=== PATIENT | female | born 2000 | race Caucasian/White ===

== ENCOUNTER 2020-12-10 00:15 | Inpatient (IN) ==
[2020-12-10] MEDS ORDERED: IOPAMIDOL 100 ML BOTTLE IV ONE ×2 (00:16→15:29)
[2020-12-10] MEDS ORDERED: LACTATED RINGERS 1,000 ML IV ONE ×2 (00:57→00:59)
[2020-12-10] MEDS ORDERED: morphine 4 MG/ML VIAL IV ONE (00:57)
[2020-12-10] MEDS ORDERED: VANCOMYCIN 1,000 MG in 0.9 % SODIUM CHLORIDE 250 ML IV ONE (00:59)
[2020-12-10 01:39] LABS: POC Blood Urea Nitrogen 6 mg/dL (6-20); POC CO2 27 mmol/L (22-30); POC Chloride 94 mEq/L (96-108); POC Creatinine 0.7 mg/dL (0.6-1.2); POC Glucose, Random 113 mg/dL (70-105); POC Hematocrit 43 % (36-48); POC Potassium 3.7 mEql/L (3.3-5.1); POC Sodium 133 mEq/L (133-145)
[2020-12-10] MEDS ORDERED: diphenhydrAMINE 50 MG/ML VIAL IV ONE ×2 (02:30→08:41)
[2020-12-10] MEDS ORDERED: KETOROLAC 30 MG/ML VIAL IV ONE ×2 (02:30→08:42)
[2020-12-10 02:34] LABS: Basophils # (Auto) 0.03 K/mcL (0.00-0.30); Basophils % (Auto) 0.2 % (0.0-2.0); Eosinophils # (Auto) 0.19 K/mcL (0.00-0.70); Eosinophils % (Auto) 1.4 % (0.0-7.0); Hematocrit 42.1 % (34.1-44.9); Hemoglobin 13.2 g/dL (11.2-15.7); Lymphocytes # (Auto) 2.35 K/mcL (1.50-4.80); Lymphocytes % (Auto) 17.7 % (15.5-49.0); Mean Cell Volume 89.8 fL (80.0-100.0); Mean Corpuscular HGB Conc 31.4 g/dL (31.0-36.0); Mean Platelet Volume 10.2 fL (7.4-10.4); Monocytes # (Auto) 1.12 K/mcL (0.10-0.90); Monocytes % (Auto) 8.5 % (1.0-12.0); Neutrophils % (Auto) 72.2 % (38.0-78.0); Platelet Count 352 K/mcL (140-440); RBC 4.69 M/mcL (3.59-5.38); Red Cell Distribution Width 13.8 % (11.5-14.5); WBC 13.3 K/mcL (4.5-11.0)
--- NOTE | 2020-12-10 05:21 | Emergency Department Note ---
Skin/Abscess/FB HPI General Chief complaint: Skin/Abscess/Rash Stated complaint: Abscess Time Seen by Provider: 12/10/20 00:57 Source: patient Mode of arrival: ambulatory Limitations: no limitations History of Present Illness HPI Narrative: Narrative: 20-year-old female with a history of lupus not on any medications and Raynaud's syndrome, history of IVDA use (opiates), presenting to the ED with worsening right leg popliteal pain swelling and redness worsening progressively for the past 10 days. She does admit she did inject in the popliteal region about 10 days ago when this all slowly started. She endorses a lot of pain especially with range of motion of the knee. But denies systemic symptoms such as fevers. She has no chest pain shortness of breath and no other complaints in her other extremities. She is recently new to the [facility] and has not really followed up on her overall general health care, coming here from [place] because her father lives in this general area. Related Data Home Medications Medication Instructions Recorded Confirmed No Known Home Meds 12/10/20 12/10/20 Allergies Allergy/AdvReac Type Severity Reaction Status Date / Time aripiprazole [From Abilify] Allergy Severe Other Verified 12/10/20 00:19 Review of Systems ROS ROS Narrative: Narrative: At least 10 systems reviewed and otherwise acutely negative except as in the [facility] Narrative Patient History Narrative: Narrative: Medical/Surgical/Family History All Active Problems Cellulitis (Acute) Abscess of right lower leg (Acute) Social History Smoking Status: Current every day smoker Exam Narrative Narrative: Narrative: Constitutional: normally developed, appears in some pain, overall ill-appearing Head: Normocephalic, atraumatic, Eyes: No Icterus, ENT: Moist mucus membranes, Neck: Supple, Cardiac: Tachycardic heart sounds, palpable radial pulses, palpable dorsalis pedis and PT pulses brisk capillary refill in lower extremities Pulmonary: Normal respiratory effort. Breath sounds clear, no wheeze, rhonchi, rales, Gastrointestinal: Abdomen soft, non-distended, non-tender, Musculoskeletal: No gross deformities, well perfused. Some chronic scarring to her antecubital fossa's. Exam of her right lower extremity shows extensive warmth induration tenderness and swelling and cellulitis focused primarily over her right popliteal region extending up her proximal posterior thigh and calf region. No necrosis or Crepitus, compartments feel soft. She has difficulty fully extending at the knee secondary to pain. She is distally neurovascularly intact Skin: warm, dry Neuro: Alert and oriented. General Limitations: no limitations Course Vital Signs Vital signs: Vital Signs Temperature 36.6 C 12/10/20 00:16 Pulse Rate 120 H 12/10/20 00:16 Respiratory Rate 16 12/10/20 00:16 Blood Pressure 118/91 12/10/20 00:16 Pulse Oximetry (%) 100 12/10/20 00:16 Temperature 36.6 C 12/10/20 00:16 Pulse Rate 110 H 12/10/20 02:34 Respiratory Rate 98 H 12/10/20 03:16 Blood Pressure 102/65 12/10/20 06:46 Pulse Oximetry (%) 99 12/10/20 04:16 MDM MDM Narrative Medical decision making narrative: Narrative: Patient presents with what clinically is consistent with an extensive cellulitis to the back of her right knee and suspected deep tissue abscess. She is tachycardic but afebrile and blood pressure stable. Septic work-up initiated is given 2 L IV fluids, vancomycin blood cultures obtained will obtain CT of her leg CBC shows leukocytosis 13, lactic acid normal electrolytes unremarkable, p [id number] negative. CT shows enhanced fluid collection over the proximal gastrocnemius 3.4 x 8 x 5.9 cm with inflammation of the deep and some superficial soft tissue and stranding. Does also extend down to the region of the popliteal vein and artery, popliteal vein appears to narrow in the region of the infection but does fill below and above, cannot rule out DVT. Reevaluation vital stable feeling better, tachycardia resolved, will require admission for an extensive soft tissue infection with further IV antibiotics and surgical evaluation for possible washout or debridement. patient is very agreeable and appreciative of that plan. I have spoken with Dr. Brooks accepts admission, I have also consulted with Dr. Johnson with orthopedics for washout, however his schedule is quite busy in the OR today, I have subsequently spoken with Dr. Colunga with general surgery who is agreeable to taking the patient for washout likely around noon today. Patient will remain in the ED until a bed is available, she started on some maintenance fluids made n.p.o. Additionally have ordered a duplex ultrasound the right lower extremity to further differentiate if there is any DVT. Lab Data Result diagrams: 12/10/20 01:25 Labs: Lab Results 12/10/20 12/10/20 12/10/20 Range/Units 01:23 01:24 01:25 WBC 13.3 H (4.5-11.0) K/mcL RBC 4.69 (3.59-5.38) M/mcL Hgb 13.2 (11.2-15.7) g/dL Hct 42.1 (34.1-44.9) % POC Hct 43 (36-48) % MCV 89.8 (80.0-100.0) fL MCH 28.1 (26.0-34.0) pg MCHC 31.4 (31.0-36.0) g/dL RDW 13.8 (11.5-14.5) % Plt Count 352 (140-440) K/mcL MPV 10.2 (7.4-10.4) fL Neut % (Auto) 72.2 (38.0-78.0) % Lymph % (Auto) 17.7 (15.5-49.0) % [place] % (Auto) 8.5 (1.0-12.0) % Eos % (Auto) 1.4 (0.0-7.0) % Baso % (Auto) 0.2 (0.0-2.0) % Lymph # (Auto) 2.35 (1.50-4.80) K/mcL [place] # (Auto) 1.12 H (0.10-0.90) K/mcL Eos # (Auto) 0.19 (0.00-0.70) K/mcL Baso # (Auto) 0.03 (0.00-0.30) K/mcL Absolute Neutrophils 9.56 H (1.80-8.00) K/mcL VBG Lactic Acid 1.0 (0.5-2.0) mmol/L POC Sodium 133 (133-145) mEq/L POC Potassium 3.7 (3.3-5.1) mEql/L POC Chloride 94 L (96-108) mEq/L POC Total CO2 27 (22-30) mmol/L POC BUN 6 (6-20) mg/dL POC Creatinine 0.7 (0.6-1.2) mg/dL POC Glucose 113 H (70-105) mg/dL POC WB Ioniz Calcium 1.10 L (1.16-1.32) mmEq/L ED POC Tests ED POC Tests: HCG POC Results Negative Discharge Plan Patient/Caregiver Discharge Instructions Pt seen by [facility]/PA only: No Clinical Impression: Abscess of right lower leg Cellulitis Qualifiers: Site of cellulitis: extremity Site of cellulitis of extremity: lower extremity Laterality: right Qualified Code(s): L03.115 - Cellulitis of right lower limb Patient Disposition: Xfer As Inpt ([facility] Condition: Fair Prescriptions: No Action No Known Home Meds RF: 0
[2020-12-10] MEDS ORDERED: ONDANSETRON 4 MG/2 ML VIAL IV PRN ×3 (07:04→15:29)
[2020-12-10] MEDS ORDERED: HYDROmorphone 0.5 MG/0.5 ML SYRINGE IV PRN ×2 (07:04→13:38)
[2020-12-10] MEDS ORDERED: VANCOMYCIN PER PHARMACY IV ONE (07:04)
[2020-12-10] MEDS ORDERED: VANCOMYCIN PER PHARMACY IV SCH ×2 (07:15→15:29)
[2020-12-10] MEDS ORDERED: LACTATED RINGERS 1,000 ML IV SCH ×3 (07:15→15:29)
[2020-12-10] MEDS: CEFEPIME 2 GM VIAL IV SCH ×4 (08:16→22:31)
--- NOTE | 2020-12-10 08:37 | Cat Scan Report ---
History: Infection in the right popliteal fossa there is edema extending down the calf and in the upper thigh TECHNIQUE: Following injection of intravenous nonionic contrast the patient was imaged from the mid thigh to the mid tibia and fibula. Sagittal and coronal reformats were created. The radiation exposure was limited using dose reduction technology. FINDINGS: There is a complex irregularly shaped fluid collection with peripheral enhancement in the popliteal fossa extending into the upper thigh. It measures 3.4 x 5.9 x 8.0 cm. It is contiguous with the posterior aspect of the bellies of the medial and lateral gastrocnemius muscles. There is edema in the deep fascial planes and in the subcutaneous tissues extending posteriorly in the upper thigh and distally to the mid calf. There are small amount of fluid in the suprapatellar bursa. There is low level enhancement of the synovium in the suprapatellar bursa. Below the level of the knee joint, the abscess collection is causing extrinsic compression of the popliteal vein. Popliteal artery is normal. There are couple lymph nodes in the popliteal fossa measuring up to 1 cm. IMPRESSION: Large abscess in the midline of the mid to lower popliteal fossa with surrounding cellulitis. Possible septic joint with small amount of fluid with low level enhancement of the synovium in the suprapatellar bursa Interpreted and Authenticated by: Vance Zelaya 12/10/20
[2020-12-10] MEDS ORDERED: ACETAMINOPHEN 1,000 MG/100 ML BAG IV ONE (08:42)
--- NOTE | 2020-12-10 08:52 | Ultrasound Report ---
History: Abscess in the right popliteal fossa with compression of the popliteal vein seen on preceding CT scan FINDINGS: There is normal venous flow in the thigh from the groin down to the top of the distal thigh. There is no thrombosis in the thigh. In the popliteal fossa there is a complex abscess collection which measures 3.9 x 6.2 x 6.6 cm. Patient would not tolerate compression of the popliteal fossa due to the infection. There may be a small amount of nonocclusive clot along the superior aspect of the popliteal fossa. There is extrinsic compression of the popliteal vein but the vein does not appear thrombosed. Was demonstrated in the posterior tibial and peroneal veins. IMPRESSION: Extrinsic compression of the popliteal vein by large abscess. Possible small organized thrombus near the boundary of the distal superficial femoral vein and popliteal vein Abscess in the popliteal fossa Interpreted and Authenticated by: Vance Zelaya 12/10/20
[2020-12-10] MEDS ORDERED: VANCOMYCIN 750 MG in 0.9 % SODIUM CHLORIDE 250 ML IV SCH (09:00)
--- NOTE | 2020-12-10 12:06 | General Surg History&Physical ---
HPI History of Present Illness Patient information: Note initiated : 12/10/20 at 11:56 am Service Date, if different from initiated Date: [] Patient: Anitha Horton a 20 y/o F admitted on for Abscess. Chief Complaint: [] Chief complaint: Abscess right popliteal fossa History of present illness: Ms. Horton is a 20 year old F admitted with large abscess right popliteal fossa. The patient has a history of substance abuse and uses heroin and methamphetamine. She had methamphetamine and heroin injection about 1 week ago. She developed pain and redness in the posterior aspect of the right leg injection site. She has had progressive pain since that time. She noted increasing swelling and difficulty flexing and extending her right knee. She was seen in the emergency room and is noted to have a bulging abscess of the superior aspect of the gastrocnemius and the popliteal space. She also has cellulitis of the posterior Thigh and calf. Patient states that her last injection was 4 days ago. She has a major abscess and will need operative drainage and debridement under anesthesia. Constitutional Constitutional: Present chills, fatigue, lethargy, malaise and weakness EENT Ears: Absent decreased hearing Nose, mouth and throat: Absent abnormal hearing, dry mouth and vertigo Cardiovascular Cardiovascular: Present leg edema and pedal edema; Absent chest pain with activity, claudication, dyspnea on exertion, radiating jaw, neck or arm pain and palpatations Respiratory Respiratory: Absent cough, dyspnea and wheezing Gastrointestinal Gastrointestinal: Absent abdominal pain, cramping and melena Musculoskeletal Musculoskeletal: Present abnormal gait, arthralgias, joint swelling, muscle cramps and muscle weakness Integumentary Integumentary: Present sores; Absent pruritus Neurological Neurological: Absent abnormal gait and behavioral changes Psychiatric Psychiatric: Present depression Hematologic/Lymphatic Hematologic/Lymphatic: Absent easy bleeding, easy bruising and lymphadenopathy Allergic/Immunologic Allergic/Immunologic: Absent tongue swelling, throat swelling, uticaria, wheezing and lip swelling PFSH PFSH All Active Problems (Updated 12/10/20 @ 12:09 by Aracelis Colunga MD) Polysubstance (including opioids) dependence with physiol dependence (Acute) Cellulitis (Acute) Abscess of right lower leg (Acute) MEDS/ALLERGIES Home Medications and Allergies Home Medications Medication Instructions Recorded Confirmed Type No Known Home Meds 12/10/20 12/10/20 History Allergies Allergy/AdvReac Type Severity Reaction Status Date / Time aripiprazole [From [facility]] Allergy Severe Other Verified 12/10/20 00:19 Physical Examination Vital Signs Vital signs: Temp Pulse Resp BP Pulse Ox 97.8 F 86 98 H 98/55 97 12/10/20 00:16 12/10/20 11:47 12/10/20 03:16 12/10/20 10:39 12/10/20 11:47 General physical appearance General physical exam: well developed, well nourished, moderate distress and moderate pain Eyes Eye exam: PERRL and normal ocular movement ENT ENT exam: normal nares, normal mucosa, no hearing loss, no congestion, poor assisted and other (Cavitated teeth); negative decreased hearing Head Head exam IM: Present atraumatic and normal inspection Neck Neck exam: no masses, no bruits, trachea midline, no lymphadenopathy and no venous distension Cardiovascular Cardiovascular exam IM: Present normal rate and rhythm, RRR, +S1 and +S2; Absent gallop and JVD Respiratory Respiratory exam: normal expansion, normal respiratory effort and clear to auscultation Abdomen Abdomen: Present soft and non tender; Absent bowel sounds (Normal bowel sounds) Hernia: Absent none Integumentary Integumentary: Present other (Cellulitis posterior aspect right leg extending from popliteal space down to Achilles) Neurologic Neurologic: Present normal coordination and normal sensation Musculoskeletal Musculoskeletal: Present other (Large tender fluctuant abscess cavity superior aspect of the gastrocnemius insertion with extension into popliteal space) Psychiatric Psychiatric: Present oriented to time, oriented to person, oriented to place, speech is normal and memory intact Results Labs Result diagrams: 12/10/20 01:25 Labs: Abnormal lab results 12/10/20 12/10/20 Range/Units 01:23 01:25 WBC 13.3 H (4.5-11.0) K/mcL Bland # (Auto) 1.12 H (0.10-0.90) K/mcL Absolute Neutrophils 9.56 H (1.80-8.00) K/mcL POC Chloride 94 L (96-108) mEq/L POC Glucose 113 H (70-105) mg/dL POC WB Ioniz Calcium 1.10 L (1.16-1.32) mmEq/L All other labs normal. A/P Assessment and plan (1) Abscess of right lower leg: Status: Acute (2) Cellulitis: Status: Acute Qualifiers: Laterality: right Site of cellulitis: extremity Site of cellulitis of extremity: lower extremity Qualified Code(s): L03.115 - Cellulitis of right lower limb (3) Polysubstance (including opioids) dependence with physiol dependence: Status: Acute Time Spent With Patient Time: Total time spent is greater than 50% in coordination of care (as documented) at patient's floor/unit and/or counseling patient:
[2020-12-10] MEDS ORDERED: MIDAZOLAM 2 MG/2 ML VIAL ONE (13:00)
[2020-12-10] MEDS ORDERED: ONDANSETRON 4 MG/2 ML VIAL ONE (13:00)
[2020-12-10] MEDS ORDERED: PROPOFOL 200 MG/20 ML VIAL IV ONE (13:00)
[2020-12-10] MEDS ORDERED: KETAMINE 50 MG/ML Syringe (ANEST) IV ONE (13:00)
[2020-12-10] MEDS ORDERED: GLYCOPYRROLATE 0.2 MG/ML VIAL IV ONE (13:00)
[2020-12-10] MEDS ORDERED: DEXAMETHASONE 10 MG/ML VIAL ONE (13:00)
[2020-12-10] MEDS ORDERED: fentaNYL 100 MCG/2 ML VIAL IV ONE (13:00)
[2020-12-10] MEDS ORDERED: LIDOCAINE HCL/PF 100 MG/5 ML SYRINGE IV ONE (13:00)
[2020-12-10] MEDS ORDERED: fentaNYL 100 MCG/2 ML VIAL IV PRN ×2 (13:38→15:29)
[2020-12-10] MEDS ORDERED: IPRATROPIUM/ALBUTEROL 3 ML AMPUL.NEB NEB PRN ×2 (13:38→15:29)
[2020-12-10] MEDS ORDERED: PROMETHAZINE 25 MG/ML VIAL IM PRN ×2 (13:38→15:29)
[2020-12-10] MEDS ORDERED: diphenhydrAMINE 50 MG/ML VIAL IV PRN ×2 (13:38→15:29)
[2020-12-10] MEDS ORDERED: PROMETHAZINE 25 MG/ML VIAL IV PRN ×2 (13:38→15:29)
[2020-12-10] MEDS ORDERED: MEPERIDINE 50 MG/ML VIAL IM PRN (13:38)
[2020-12-10] MEDS ORDERED: KETOROLAC 30 MG/ML VIAL IV PRN ×2 (13:38→15:29)
[2020-12-10] MEDS ORDERED: LORazepam 2 MG/ML VIAL IV PRN ×2 (13:56→15:29)
--- NOTE | 2020-12-10 13:58 | Brief Operative Note ---
Brief Operative Note Date of procedure: 12/10/20 Pre-op diagnosis: right popliteal abscess Post-op diagnosis: other (right popliteal abscess) Procedure: incision,drainage and debridement of right popliteal abscess Grafts/Implants: No (1/2 " bernice drain) Anesthesia: GLMA Findings: very large abscess of popliteal space extending to head of gastrocnemius encompassing entire popliteal space with fascial and muscle necrosis Complications: none Surgeon: Aracelis Colunga Specimens Removed/Pathology: other (purulent fluid for culture) Condition: stable Disposition: PACU
[2020-12-10] MEDS: MEPERIDINE 25 MG/ML VIAL IV PRN ×2 (14:02→14:16)
[2020-12-10 14:12] LABS: Amphetamine Screen,Urine Suspect positive; Barbiturate Screen,Urine None detected; Benzodiazepines Screen,Urine None detected; Cannabinoid Screen,Urine Suspect Positive; Cocaine Screen,Urine None detected; Opiate Screen,Urine Suspect Positive; Oxycodone, Urine Screen None detected; Phencyclidine Screen,Urine None detected
[2020-12-10] MEDS ORDERED: ACETAMINOPHEN 1,000 MG/100 ML BAG IV PRN (14:15)
[2020-12-10] MEDS ORDERED: ACETAMINOPHEN 750 MG/75 ML BAG IV PRN (14:15)
[2020-12-10] MEDS ORDERED: 0.9 % SODIUM CHLORIDE 1,000 ML IV SCH (15:29)
[2020-12-10] MEDS: LACTATED RINGERS 1,000 ML IV SCH (16:35)
[2020-12-10] MEDS: oxyCODONE HCL 5 MG TABLET PO PRN (19:15)
[2020-12-10] MEDS: HYDROmorphone 0.5 MG/0.5 ML SYRINGE IV PRN (19:58)
[2020-12-10] MEDS: DOCUSATE SODIUM 100 MG CAPSULE PO SCH (20:14)
[2020-12-10] MEDS: SENNOSIDES 1 TABLET PO SCH (20:15)
[2020-12-10] MEDS: VANCOMYCIN 750 MG in 0.9 % SODIUM CHLORIDE 250 ML IV SCH (21:32)
[2020-12-10] MEDS: 0.9 % SODIUM CHLORIDE 10 ML SYRINGE IV SCH (22:31)
[2020-12-11] MEDS: HYDROmorphone 0.5 MG/0.5 ML SYRINGE IV PRN ×3 (00:25→22:14)
[2020-12-11] MEDS: LACTATED RINGERS 1,000 ML IV SCH ×4 (03:29→23:31)
[2020-12-11] MEDS: 0.9 % SODIUM CHLORIDE 10 ML SYRINGE IV SCH ×3 (05:32→21:19)
[2020-12-11] MEDS: CEFEPIME 2 GM VIAL IV SCH ×3 (05:32→21:19)
[2020-12-11] MEDS: DOCUSATE SODIUM 100 MG CAPSULE PO SCH ×2 (08:26→21:19)
[2020-12-11] MEDS ORDERED: BUPRENORPHINE/NALOXONE 4MG/1MG ORAL FILM SL PRN (08:52)
[2020-12-11] MEDS ORDERED: LACTATED RINGERS 1,000 ML IV ONE (08:53)
[2020-12-11] MEDS ORDERED: BUPRENORPHINE/NALOXONE 4MG/1MG ORAL FILM SL SCH (09:00)
--- NOTE | 2020-12-11 12:28 | Operative Note ---
DATE OF OPERATION: 12/10/2020 PREOPERATIVE DIAGNOSIS: Right popliteal abscess. POSTOPERATIVE DIAGNOSIS: Right popliteal abscess. PROCEDURE: Incision, drainage, and debridement of right popliteal abscess. SURGEON: Aracelis Colunga M.D. FINDINGS: Very large abscess of the popliteal space extending to the head of the gastrocnemius muscle, encompassing the entire popliteal space involving fascia and muscle with some muscle necrosis. DESCRIPTION OF PROCEDURE: Under general anesthesia, the right lower extremity was prepped and draped from the thigh to foot. The popliteal space was aspirated with an 18-gauge needle, and 70 mL of bloody, purulent fluid was removed. A small probe was then placed in this tract and the tract was dilated after which a grooved probe was placed. I stayed very superficial because of fear of injury to vessels and tendons. The abscess cavity was widely opened and the necrotic fascia and muscle was debrided. Copious irrigation was carried out. A counterincision was made more distally and a half-inch [place] drain was then placed through these two openings. The drain was sutured to itself to maintain patency of the large abscess cavity. Multiple sheets of Aquacel AG gauze were placed after irrigation was completed. The area was wrapped with 4 x 4 gauze and 4-inch Kerlix gauze. The patient was awakened, transferred to a bed, and taken to the postanesthetic care unit in satisfactory condition. LCS:farrah Job ID: [id number] Doc ID: [id number] Aracelis Colunga M.D.
[2020-12-11] MEDS: VANCOMYCIN 750 MG in 0.9 % SODIUM CHLORIDE 250 ML IV SCH ×3 (12:48→21:19)
--- NOTE | 2020-12-11 15:48 | Internal Medicine Consult Note ---
HPI Data of Consult Consult date: 12/11/20 Primary Care Provider: PCP No Consult Narrative History of present illness: 20 year old female with a history of heroin use admitted for large right popliteal abscess. The patient underwent I&D on 12/10, subsequently developed hypotension that responded to IV fluid. The patient also developed opioid withdrawal for which suboxone was started. Review of systems Constitutional: no fever, fatigue, or weight loss Eyes: no vision changes or pain Cardiovascular: no chest pain, no palpitations Respiratory: no cough or dyspnea Gastrointestinal: no abdominal pain, no nausea, vomiting, or diarrhea Genitourinary: no dysuria or difficulty voiding Musculoskeletal: positive for right leg pain Integumentary: no skin lesion or wound Neurological: no focal weakness or numbness Psychiatric: positive for anxiety Physical exam Head: Atraumatic, normal inspection. Eyes: normal appearance, no scleral icterus. Neck: full ROM Respiratory: no respiratory distress. Cardiovascular: normal rate and rhythm, S1, S2. GI/Abdominal: soft, nontender, no guarding. Extremities: right leg I&D site covered with clean bandage, cellulitis and edema present in right lower extremity. Neurological: CN II-XII intact, intact motor, intact sensation. Psychiatric: normal mood. Skin: warm, normal color cc:: CC: Aracelis Colunga MD [facility] All Active Problems (Updated 12/10/20 @ 12:09 by Aracelis Colunga MD) Polysubstance (including opioids) dependence with physiol dependence (Acute) Cellulitis (Acute) Abscess of right lower leg (Acute) MEDS/ALLERGIES Home Medications and Allergies Home Medications Medication Instructions Recorded Confirmed Type No Known Home Meds 12/10/20 12/10/20 History Allergies Allergy/AdvReac Type Severity Reaction Status Date / Time aripiprazole [From Abilify] Allergy Severe Other Verified 12/10/20 16:36 EXAM Constitutional Vitals: Temp Pulse Resp BP Pulse Ox 97.9 F 86 14 104/67 95 12/11/20 12:00 12/11/20 12:00 12/11/20 03:09 12/11/20 12:00 12/11/20 12:00 DATA Data Completed and Pending Labs: Labs from last 24 hours 12/11/20 12/11/20 12:45 10:25 VBG Lactic Acid 1.8 Vancomycin Trough < 4.0 L Preliminary micro results at discharge 12/10/20 13:00 Gram Stain - Preliminary Leg - Right Wound Culture - Preliminary Staphylococcus aureus 12/10/20 01:28 Blood Culture - Preliminary Blood 12/10/20 01:11 Blood Culture - Preliminary Blood A/P Narrative A/P Narrative: Assessment: 20 year old female with a history of heroin use admitted for large right popliteal abscess s/p I&D 12/10/20. #Right popliteal abscess s/p I&D #Cellulitis #Opioid use disorder-severe #Methamphetamine used disorder Plan -On Vancomycin and Cefepime per surgery. -Follow all cultures. -IV fluid. -Suboxone SL -Analgesics prn Time Spent With Patient Time: Total time spent is greater than 50% in coordination of care (as documented) at patient's floor/unit and/or counseling patient:
[2020-12-11] MEDS: KETOROLAC 30 MG/ML VIAL IV PRN (17:55)
[2020-12-11] MEDS: ACETAMINOPHEN 750 MG/75 ML BAG IV PRN (19:25)
[2020-12-11] MEDS: MUPIROCIN OINT 2% 22GM NARES SCH (21:17)
[2020-12-11] MEDS: SENNOSIDES 1 TABLET PO SCH (21:19)
[2020-12-11] MEDS: oxyCODONE HCL 5 MG TABLET PO PRN (23:29)
[2020-12-12] MEDS: HYDROmorphone 0.5 MG/0.5 ML SYRINGE IV PRN ×2 (01:02→03:09)
[2020-12-12] MEDS: KETOROLAC 30 MG/ML VIAL IV PRN ×2 (05:43→18:52)
[2020-12-12] MEDS: ACETAMINOPHEN 750 MG/75 ML BAG IV PRN (05:44)
[2020-12-12] MEDS: LACTATED RINGERS 1,000 ML IV SCH ×3 (06:25→16:39)
[2020-12-12] MEDS: CEFEPIME 2 GM VIAL IV SCH ×3 (06:27→22:55)
[2020-12-12] MEDS: VANCOMYCIN 750 MG in 0.9 % SODIUM CHLORIDE 250 ML IV SCH ×4 (06:27→22:56)
[2020-12-12] MEDS: 0.9 % SODIUM CHLORIDE 10 ML SYRINGE IV SCH ×3 (06:30→23:03)
[2020-12-12] MEDS: MUPIROCIN OINT 2% 22GM NARES SCH ×2 (08:33→23:02)
[2020-12-12] MEDS: DOCUSATE SODIUM 100 MG CAPSULE PO SCH ×2 (08:33→22:14)
[2020-12-12] MEDS ORDERED: BUPRENORPHINE/NALOXONE 4MG/1MG ORAL FILM SL SCH (09:00)
[2020-12-12] MEDS: ACETAMINOPHEN 500 MG TABLET PO PRN (11:43)
[2020-12-12] MEDS: IBUPROFEN 200 MG TABLET PO PRN (13:35)
[2020-12-12] MEDS: METHOCARBAMOL 750 MG TABLET PO PRN ×2 (13:48→19:52)
--- NOTE | 2020-12-12 14:19 | General Surgery Progress Note ---
SUBJECTIVE Subjective Patient information: Note initiated : 12/12/20 at 2:11 pm Service Date, if different from initiated Date: [] Patient: Anitha Horton 20 y/o F admitted on 12/10/20 for Abscess. Chief Complaint: [] Principal diagnosis: Abscess right popliteal space Interval history: Patient is clinically improved. She is afebrile. The cellulitis of her leg is significantly improved. She still has difficulty with full extension of her knee. Her pain is better controlled. Constitutional Vitals: Vital Signs Temp Pulse Resp BP Pulse Ox 97.7 F 85 16 101/62 97 12/12/20 12:00 12/12/20 12:00 12/12/20 06:45 12/12/20 12:00 12/12/20 12:00 Period Temp Pulse Resp BP Sys/[place] Pulse Ox Last 24 Hr 96.3 F-98.0 F 68-88 12-16 83-101/47-68 96-98 Intake and Output 12/12/20 12/12/20 12/12/20 05:59 13:59 21:59 Intake Total 1880 325 Output Total 1200 Balance 680 325 Intake & Output: Intake & Output 12/12/20 12/12/20 12/12/20 05:59 13:59 21:59 Intake Total 1880 325 Output Total 1200 Balance 680 325 Intake: IV 1250 325 Lactated Ringers 1,000 ml @ 100 1000 mls/hr IV .Q10H GIOVANNY Rx#: [id number] Vancomycin 750 mg In Sodium 250 250 Chloride 0.9% 250 ml @ 250 mls/ hr IV Q8H GIOVANNY Rx#:[id number] Oral 630 Output: Void Amount 1200 Other: Urine Appearance Clear Urine Color Bright Yellow Eye Eye exam: Present EOMI Pupils: Present normal accommodation and PERRL ENT ENT exam: Present mucous membranes moist and normal exam Neck Neck exam: Present full ROM Additional comments: Internal jugular vein catheter right neck Respiratory Respiratory exam: Present normal respiratory exam and CTAB; Absent rales, rhonchi and wheezes Cardiovascular Cardiovascular exam: Present normal rate and rhythm, RRR, +S1 and +S2; Absent JVD GI/Abdominal GI/Abdominal exam: Present normal bowel sounds and soft; Absent distended, guarding and tenderness Extremities Exam Additional comments: General swelling and cellulitis of right lower extremity is decreased. The thigh area and the lower leg tissue is much softer and pliable. There is only a small amount of drainage from the operative site. Neurological Exam Neurological exam: Present alert and oriented X3 Psychiatric Psychiatric exam: Present anxious and flat affect Skin Skin exam: Present erythema (Mild cellulitis of the upper and lower leg; much improved from yesterday); Absent cyanosis A/P Assessment and plan (1) Abscess of right lower leg: Status: Acute (2) Cellulitis: Status: Acute Qualifiers: Laterality: right Site of cellulitis: extremity Site of cellulitis of extremity: lower extremity Qualified Code(s): L03.115 - Cellulitis of right lower limb (3) Polysubstance (including opioids) dependence with physiol dependence: Status: Acute Narrative A/P Narrative: We will continue present antibiotic treatment We will do full dressing change tomorrow Time Spent With Patient Time: Total time spent is greater than 50% in coordination of care (as documented) at patient's floor/unit and/or counseling patient:
[2020-12-12 15:04] LABS: Basophils # (Auto) 0.05 K/mcL (0.00-0.30); Basophils % (Auto) 0.7 % (0.0-2.0); Eosinophils % (Auto) 2.7 % (0.0-7.0); Hematocrit 32.5 % (34.1-44.9); Hemoglobin 10.4 g/dL (11.2-15.7); Lymphocytes # (Auto) 3.38 K/mcL (1.50-4.80); Lymphocytes % (Auto) 45.6 % (15.5-49.0); Mean Cell Volume 90.5 fL (80.0-100.0); Monocytes # (Auto) 0.59 K/mcL (0.10-0.90); Platelet Count 303 K/mcL (140-440); RBC 3.59 M/mcL (3.59-5.38); Red Cell Distribution Width 13.8 % (11.5-14.5); WBC 7.4 K/mcL (4.5-11.0)
--- NOTE | 2020-12-12 16:44 | Internal Med Progress Note ---
SUBJECTIVE Subjective Patient information: Note initiated : 12/12/20 at 4:41 pm Service Date, if different from initiated Date: [] Patient: Anitha Horton 20 y/o F admitted on 12/10/20 for Abscess. Chief Complaint: [] Principal diagnosis: Abscess right popliteal space Interval history: 20 year old female with a history of heroin use admitted for large right popliteal abscess. The patient underwent I&D on 12/10, subsequently developed hypotension that responded to IV fluid. The patient also developed opioid withdrawal for which suboxone was started. 12/12: opioid cravings satisfactorily controlled with suboxone, surgical cultures grew MRSA and Haemophilus parainfluenzae. Physical exam Head: Atraumatic, normal inspection. Eyes: normal appearance, no scleral icterus. Neck: full ROM Respiratory: no respiratory distress. Cardiovascular: normal rate and rhythm, S1, S2. GI/Abdominal: soft, nontender, no guarding. Extremities: right leg I&D site covered with clean bandage, improving cellulitis and edema present in right lower extremity. Neurological: CN II-XII intact, intact motor, intact sensation. Psychiatric: normal mood. Skin: warm, normal color Constitutional Vitals: Vital Signs Temp Pulse Resp BP Pulse Ox 97.7 F 85 16 101/62 97 12/12/20 12:00 12/12/20 12:00 12/12/20 06:45 12/12/20 12:00 12/12/20 12:00 Period Temp Pulse Resp BP Sys/Carr[place] Pulse Ox Last 24 Hr 97.6 F-98.0 F 68-85 16-16 83-101/47-68 96-98 Intake and Output 12/12/20 12/12/20 12/12/20 05:59 13:59 21:59 Intake Total 5873 168 9275 Output Total 1200 Balance 802 035 4687 Intake & Output: Intake & Output 12/12/20 12/12/20 12/12/20 05:59 13:59 21:59 Intake Total 2304 601 7639 Output Total 1200 Balance 553 718 5012 Intake: IV 6896 888 9294 Lactated Ringers 1,000 ml @ 100 1000 843 mls/hr IV .Q10H [facility] Rx#: [id number] Vancomycin 750 mg In Sodium 250 250 250 Chloride 0.9% 250 ml @ 250 mls/ hr IV Q8H [facility] Rx#:[id number] Oral 630 Output: Void Amount 1200 Other: Urine Appearance Clear Urine Color Bright Yellow OBJ DATA Labs CBC & Chem 7: 12/12/20 14:27 Labs: Abnormal Lab Results 12/12/20 12/11/20 12/10/20 14:27 12:45 Unknown WBC Hgb 10.4 L Hct 32.5 L [place] # (Auto) Absolute Neutrophils POC Chloride POC Glucose POC WB Ioniz Calcium Vancomycin Trough < 4.0 L Urine Opiates Screen Suspect positive A Ur Amphetamines Screen Suspect positive A U Marijuana (THC) Screen Suspect positive A 12/10/20 12/10/20 01:25 01:23 WBC 13.3 H Hgb Hct [place] # (Auto) 1.12 H Absolute Neutrophils 9.56 H POC Chloride 94 L POC Glucose 113 H POC WB Ioniz Calcium 1.10 L Vancomycin Trough Urine Opiates Screen Ur Amphetamines Screen U Marijuana (THC) Screen Meds: Medications Acetaminophen (Acetaminophen 500 Mg Tablet) 1,000 mg PO Q8HP PRN; Protocol PRN Reason: Per Pain Protocol Last Admin: 12/12/20 11:43 Dose: 1,000 mg Documented by: Buprenorphine HCl (Buprenorphine/Naloxone 4mg/1mg Oral Film) 1 each SL DAILYP PRN PRN Reason: withdrawal Buprenorphine HCl (Buprenorphine/Naloxone 4mg/1mg Oral Film) 2 each SL DAILY [facility] Last Admin: 12/12/20 08:33 Dose: 2 each Documented by: Cefepime HCl (Cefepime 2 Gm Vial) 2 gm IV Q8H [facility]; Protocol Last Admin: 12/12/20 13:30 Dose: 2 gm Documented by: Docusate Sodium (Docusate Sodium 100 Mg Capsule) 100 mg PO BID [facility] Last Admin: 12/12/20 08:33 Dose: 100 mg Documented by: Lactated Ringer's (Lactated Ringers) 1,000 mls @ 100 mls/hr IV .Q10H [facility] Last Admin: 12/12/20 16:39 Dose: Not Given Documented by: Vancomycin HCl 750 mg/ Sodium (Chloride) 250 mls @ 250 mls/hr IV Q8H [facility] Last Infusion: 12/12/20 16:40 Dose: Infused Documented by: Ibuprofen (Ibuprofen 200 Mg Tablet) 400 mg PO Q6HP PRN; Protocol PRN Reason: Per Pain Protocol Last Admin: 12/12/20 13:35 Dose: 400 mg Documented by: Ketorolac Tromethamine (Ketorolac 30 Mg/Ml Vial) 30 mg IV Q12HP PRN PRN Reason: PAIN LEVEL 3-6 Stop: 12/13/20 17:35 Last Admin: 12/12/20 05:43 Dose: 30 mg Documented by: Methocarbamol (Methocarbamol 750 Mg Tablet) 750 mg PO Q6HP PRN PRN Reason: Muscle Spasm Last Admin: 12/12/20 13:48 Dose: 750 mg Documented by: Mupirocin (Mupirocin Oint 2% 22gm) 1 dose NARES BID [facility] Last Admin: 12/12/20 08:33 Dose: 1 dose Documented by: Ondansetron HCl (Ondansetron 4 Mg/2 Ml Vial) 4 mg IV Q6HP PRN PRN Reason: Nausea And Vomiting Senna (Sennosides 1 Tablet) 2 tab PO HS [facility] Last Admin: 12/11/20 21:19 Dose: Not Given Documented by: Sodium Chloride (0.9 % Sodium Chloride 10 Ml Syringe) 10 ml IV Q8 [facility] Last Admin: 12/12/20 14:06 Dose: Not Given Documented by: Vancomycin HCl (Vancomycin Per Pharmacy) 1 order IV UD [facility]; Protocol A/P Narrative A/P Narrative: Assessment: 20 year old female with a history of heroin use admitted for large right popliteal abscess s/p I&D 12/10/20. #Right popliteal abscess s/p I&D #Cellulitis #Opioid use disorder-severe #Methamphetamine used disorder Plan -Antibiotics and wound care per surgery. -Increase Suboxone SL to 12 mg/ 3 mg dose daily. -Nonopioid analgesics prn. -Follow up with Addiction Medicine immediately after discharge for enrollment in comprehensive substance use disorder treatment and Suboxone prescribing. Time Spent With Patient Time: Total time spent is greater than 50% in coordination of care (as documented) at patient's floor/unit and/or counseling patient:
[2020-12-12] MEDS: SENNOSIDES 1 TABLET PO SCH (22:14)
[2020-12-13] MEDS: LACTATED RINGERS 1,000 ML IV SCH ×2 (01:58→13:10)
[2020-12-13] MEDS: ACETAMINOPHEN 500 MG TABLET PO PRN (03:51)
[2020-12-13] MEDS: IBUPROFEN 200 MG TABLET PO PRN ×3 (03:52→22:25)
[2020-12-13] MEDS: CEFEPIME 2 GM VIAL IV SCH ×3 (05:47→22:07)
[2020-12-13] MEDS: 0.9 % SODIUM CHLORIDE 10 ML SYRINGE IV SCH ×3 (05:48→20:16)
[2020-12-13] MEDS: VANCOMYCIN 750 MG in 0.9 % SODIUM CHLORIDE 250 ML IV SCH ×3 (05:48→22:08)
[2020-12-13] MEDS: DOCUSATE SODIUM 100 MG CAPSULE PO SCH ×2 (08:17→19:53)
[2020-12-13] MEDS: MUPIROCIN OINT 2% 22GM NARES SCH ×2 (08:18→20:15)
[2020-12-13] MEDS ORDERED: BUPRENORPHINE/NALOXONE 4MG/1MG ORAL FILM SL SCH (09:00)
[2020-12-13] MEDS ORDERED: hydrOXYzine 25 MG TABLET PO PRN (12:18)
[2020-12-13] MEDS ORDERED: tiZANidine 4 MG TABLET PO PRN (12:18)
[2020-12-13] MEDS ORDERED: ONDANSETRON 4 MG/2 ML VIAL IV PRN (12:18)
[2020-12-13] MEDS ORDERED: cloNIDine HCL 0.1 MG TABLET PO PRN (12:20)
[2020-12-13] MEDS ORDERED: NICOTINE POLACRILEX 2 MG GUM CHEW/PARK PRN (14:08)
--- NOTE | 2020-12-13 14:08 | Internal Med Progress Note ---
SUBJECTIVE Subjective Patient information: Note initiated : 12/13/20 at 2:07 pm Service Date, if different from initiated Date: [] Patient: Anitha Horton 20 y/o F admitted on 12/10/20 for Abscess. Chief Complaint: [] Principal diagnosis: Abscess right popliteal space Interval history: 20 year old female with a history of heroin use admitted for large right popliteal abscess. The patient underwent I&D on 12/10, subsequently developed hypotension that responded to IV fluid. The patient also developed opioid withdrawal for which suboxone was started. 12/12: opioid cravings satisfactorily controlled with suboxone, surgical cultures grew MRSA and Haemophilus parainfluenzae. 12/13: still having some pain but overall pain has been fairly well controlled with tylenol and NSAIDs, currently not on opioids, surgical plan is for IV antibiotics at least until next week, added nicotine replacement prn hydroxyzine, zofran, clonidine for breakthrough opioid withdrawal symptoms. Physical exam Head: Atraumatic, normal inspection. Eyes: normal appearance, no scleral icterus. Neck: full ROM Respiratory: no respiratory distress. Cardiovascular: normal rate and rhythm, S1, S2. GI/Abdominal: soft, nontender, no guarding. Extremities: right leg I&D site covered with clean bandage, improving cellulitis and edema present in right lower extremity. Neurological: CN II-XII intact, intact motor, intact sensation. Psychiatric: normal mood. Skin: warm, normal color Constitutional Vitals: Vital Signs Temp Pulse Resp BP Pulse Ox 97.5 F 69 14 105/67 97 12/13/20 12:00 12/13/20 12:00 12/13/20 12:00 12/13/20 12:00 12/13/20 12:00 Period Temp Pulse Resp BP Sys/Carr[place]illo Pulse Ox Last 24 Hr 96.6 F-98.4 F 69-104 14-18 96-111/57-69 94-98 Intake and Output 12/13/20 12/13/20 12/13/20 05:59 13:59 21:59 Intake Total 2250 1730 Balance 2250 1730 Intake & Output: Intake & Output 12/13/20 12/13/20 12/13/20 05:59 13:59 21:59 Intake Total 2250 1730 Balance 2250 1730 Intake: IV 1250 1250 Lactated Ringers 1,000 ml @ 100 1000 1000 mls/hr IV .Q10H [facility] Rx#: [id number] Vancomycin 750 mg In Sodium 250 250 Chloride 0.9% 250 ml @ 250 mls/ hr IV Q8H [facility] Rx#:[id number] Oral 1000 480 Other: Meal Breakfast Percent of Meal Consumed 75% Feeding Ability Independent Urine Appearance Clear Urine Color Pale Urine Odor Strong # Voids 10 OBJ DATA Labs CBC & Chem 7: 12/12/20 14:27 Labs: Abnormal Lab Results 12/12/20 12/11/20 12/10/20 14:27 12:45 Unknown Hgb 10.4 L Hct 32.5 L Vancomycin Trough < 4.0 L Urine Opiates Screen Suspect positive A Ur Amphetamines Screen Suspect positive A U Marijuana (THC) Screen Suspect positive A Meds: Medications Acetaminophen (Acetaminophen 500 Mg Tablet) 1,000 mg PO Q8HP PRN; Protocol PRN Reason: Per Pain Protocol Last Admin: 12/13/20 03:51 Dose: 1,000 mg Documented by: Buprenorphine HCl (Buprenorphine/Naloxone 4mg/1mg Oral Film) 4 each SL DAILY [facility] Cefepime HCl (Cefepime 2 Gm Vial) 2 gm IV Q8H [facility]; Protocol Last Admin: 12/13/20 05:47 Dose: 2 gm Documented by: Clonidine HCl (Clonidine Hcl 0.1 Mg Tablet) 0.1 mg PO Q8H PRN PRN Reason: opioid withdrawal Docusate Sodium (Docusate Sodium 100 Mg Capsule) 100 mg PO BID [facility] Last Admin: 12/13/20 08:17 Dose: 100 mg Documented by: Hydroxyzine HCl (Hydroxyzine 25 Mg Tablet) 25 mg PO TIDP PRN PRN Reason: Anxiety Lactated Ringer's (Lactated Ringers) 1,000 mls @ 100 mls/hr IV .Q10H [facility] Last Admin: 12/13/20 13:10 Dose: 100 mls/hr Documented by: Vancomycin HCl 750 mg/ Sodium (Chloride) 250 mls @ 250 mls/hr IV Q8H [facility] Last Infusion: 12/13/20 08:22 Dose: Infused Documented by: Ibuprofen (Ibuprofen 200 Mg Tablet) 400 mg PO Q6HP PRN; Protocol PRN Reason: Per Pain Protocol Last Admin: 12/13/20 08:17 Dose: 400 mg Documented by: Ketorolac Tromethamine (Ketorolac 30 Mg/Ml Vial) 30 mg IV Q12HP PRN PRN Reason: PAIN LEVEL 3-6 Stop: 12/13/20 17:35 Last Admin: 12/12/20 18:52 Dose: 30 mg Documented by: Methocarbamol (Methocarbamol 750 Mg Tablet) 750 mg PO Q6HP PRN PRN Reason: Muscle Spasm Last Admin: 12/12/20 19:52 Dose: 750 mg Documented by: Mupirocin (Mupirocin Oint 2% 22gm) 1 dose NARES BID [facility] Last Admin: 12/13/20 08:18 Dose: 1 dose Documented by: Ondansetron HCl (Ondansetron 4 Mg/2 Ml Vial) 4 mg IV Q6HP PRN PRN Reason: Nausea And Vomiting Ondansetron HCl (Ondansetron 4 Mg/2 Ml Vial) 4 mg IV Q4HP PRN PRN Reason: Nausea And Vomiting Senna (Sennosides 1 Tablet) 2 tab PO HS [facility] Last Admin: 12/12/20 22:14 Dose: 2 tab Documented by: Sodium Chloride (0.9 % Sodium Chloride 10 Ml Syringe) 10 ml IV Q8 [facility] Last Admin: 12/13/20 05:48 Dose: 10 ml Documented by: Tizanidine HCl (Tizanidine 4 Mg Tablet) 4 mg PO TID PRN PRN Reason: spasms Vancomycin HCl (Vancomycin Per Pharmacy) 1 order IV UD [facility]; Protocol A/P Narrative A/P Narrative: Assessment: 20 year old female with a history of IV substance use admitted for large right popliteal abscess and cellulitis s/p I&D 12/10/20. #Right popliteal abscess s/p I&D -culture grew MRSA and H parainfluenzae -blood culture NGTD #Resolving cellulitis #Opioid use disorder #Methamphetamine used disorder #Tobacco use disorder Plan -Antibiotics and wound care per surgery. -Increase Suboxone SL to 16 mg/ 4 mg dose daily and maintain. -Nonopioid analgesics prn unless severe pain. -Nicotine replacement. -Follow up with Addiction Medicine immediately after discharge for enrollment in comprehensive substance use disorder treatment and Suboxone prescribing. Time Spent With Patient Time: Total time spent is greater than 50% in coordination of care (as documented) at patient's floor/unit and/or counseling patient:
--- NOTE | 2020-12-13 14:28 | XRay Report ---
HISTORY: Evaluate placement of intravenous catheter FINDINGS: There is a small caliber IV line placed at the base of the neck on the right side. The tip is pointing inferiorly and overlies the head of the right clavicle. This is in the region of the internal jugular vein. There is no widening of the mediastinum and no pneumothorax or pleural effusion. The lungs are clear and well-expanded. The heart size, mediastinum and gee are normal. IMPRESSION: Normal chest. Interpreted and Authenticated by: Vance Zelaya 12/13/20
[2020-12-13] MEDS: NICOTINE 21 MG PATCH TOPICAL SCH (14:29)
--- NOTE | 2020-12-13 14:37 | General Surgery Progress Note ---
SUBJECTIVE Subjective Patient information: Note initiated : 12/13/20 at 2:33 pm Service Date, if different from initiated Date: [] Patient: Anitha Horton 20 y/o F admitted on 12/10/20 for Abscess. Chief Complaint: [] Principal diagnosis: Abscess right popliteal space Interval history: Patient states that she feels better. She has noted better movement of her right leg at the knee. The edema is decreasing. She is ex periencing some withdrawal symptoms and has been started on Suboxone by the hospitalist. The plan is to refer her to our addiction therapist at the time of discharge Constitutional Vitals: Vital Signs Temp Pulse Resp BP Pulse Ox 97.5 F 69 14 105/67 97 12/13/20 12:00 12/13/20 12:00 12/13/20 12:00 12/13/20 12:00 12/13/20 12:00 Period Temp Pulse Resp BP Sys/Carr[place]illo Pulse Ox Last 24 Hr 96.6 F-98.4 F 69-104 14-18 96-111/57-69 94-98 Intake and Output 12/13/20 12/13/20 12/13/20 05:59 13:59 21:59 Intake Total 2250 1730 Balance 2250 1730 Intake & Output: Intake & Output 12/13/20 12/13/20 12/13/20 05:59 13:59 21:59 Intake Total 2250 1730 Balance 2250 1730 Intake: IV 1250 1250 Lactated Ringers 1,000 ml @ 100 1000 1000 mls/hr IV .Q10H [facility] Rx#: [id number] Vancomycin 750 mg In Sodium 250 250 Chloride 0.9% 250 ml @ 250 mls/ hr IV Q8H [facility] Rx#:[id number] Oral 1000 480 Other: Meal Breakfast Percent of Meal Consumed 75% Feeding Ability Independent Urine Appearance Clear Urine Color Pale Urine Odor Strong # Voids 10 Neck Neck exam: Present full ROM Additional comments: Internal jugular vein catheter right neck Respiratory Respiratory exam: Present normal respiratory exam and CTAB; Absent rales, rhonchi and wheezes Cardiovascular Cardiovascular exam: Present normal rate and rhythm, RRR, +S1 and +S2; Absent JVD GI/Abdominal GI/Abdominal exam: Present normal bowel sounds and soft; Absent distended, guarding and tenderness Extremities Exam Additional comments: General swelling and cellulitis of right lower extremity is decreased. The thigh area and the lower leg tissue is much softer and pliable. There is only a small amount of drainage from the operative site. Neurological Exam Neurological exam: Present alert and oriented X3 Psychiatric Psychiatric exam: Present anxious and flat affect A/P Assessment and plan (1) Abscess of right lower leg: Status: Acute (2) Polysubstance (including opioids) dependence with physiol dependence: Status: Acute (3) Cellulitis: Status: Acute Qualifiers: Laterality: right Site of cellulitis: extremity Site of cellulitis of extremity: lower extremity Qualified Code(s): L03.115 - Cellulitis of right lower limb Narrative A/P Narrative: Continue present therapy including IV antibiotics. Will refer to addiction physician at the time of discharge Time Spent With Patient Time: Total time spent is greater than 50% in coordination of care (as documented) at patient's floor/unit and/or counseling patient:
[2020-12-13 16:12] LABS: Basophils # (Auto) 0.05 K/mcL (0.00-0.30); Basophils % (Auto) 0.8 % (0.0-2.0); Eosinophils # (Auto) 0.21 K/mcL (0.00-0.70); Eosinophils % (Auto) 3.4 % (0.0-7.0); Hematocrit 34.5 % (34.1-44.9); Hemoglobin 10.6 g/dL (11.2-15.7); Lymphocytes # (Auto) 2.58 K/mcL (1.50-4.80); Lymphocytes % (Auto) 41.5 % (15.5-49.0); Mean Cell Volume 89.8 fL (80.0-100.0); Mean Corpuscular HGB Conc 30.7 g/dL (31.0-36.0); Mean Platelet Volume 9.6 fL (7.4-10.4); Monocytes # (Auto) 0.48 K/mcL (0.10-0.90); Monocytes % (Auto) 7.7 % (1.0-12.0); Neutrophils % (Auto) 46.6 % (38.0-78.0); Platelet Count 369 K/mcL (140-440); RBC 3.84 M/mcL (3.59-5.38); Red Cell Distribution Width 13.6 % (11.5-14.5); WBC 6.2 K/mcL (4.5-11.0)
[2020-12-13] MEDS: SENNOSIDES 1 TABLET PO SCH (19:53)
[2020-12-13] MEDS: METHOCARBAMOL 750 MG TABLET PO PRN (20:15)
[2020-12-14] MEDS: LACTATED RINGERS 1,000 ML IV SCH ×4 (02:26→21:12)
[2020-12-14] MEDS: 0.9 % SODIUM CHLORIDE 10 ML SYRINGE IV SCH ×3 (06:05→22:25)
[2020-12-14] MEDS: CEFEPIME 2 GM VIAL IV SCH ×3 (06:06→22:25)
[2020-12-14] MEDS: VANCOMYCIN 750 MG in 0.9 % SODIUM CHLORIDE 250 ML IV SCH (06:06)
[2020-12-14 07:04] LABS: Basophils # (Auto) 0.08 K/mcL (0.00-0.30); Basophils % (Auto) 1.2 % (0.0-2.0); Eosinophils # (Auto) 0.25 K/mcL (0.00-0.70); Eosinophils % (Auto) 3.6 % (0.0-7.0); Hematocrit 36.6 % (34.1-44.9); Hemoglobin 11.2 g/dL (11.2-15.7); Lymphocytes # (Auto) 3.33 K/mcL (1.50-4.80); Lymphocytes % (Auto) 48.3 % (15.5-49.0); Mean Cell Volume 90.6 fL (80.0-100.0); Mean Corpuscular HGB Conc 30.6 g/dL (31.0-36.0); Mean Platelet Volume 9.6 fL (7.4-10.4); Monocytes # (Auto) 0.54 K/mcL (0.10-0.90); Monocytes % (Auto) 7.8 % (1.0-12.0); Neutrophils % (Auto) 39.1 % (38.0-78.0); Platelet Count 377 K/mcL (140-440); RBC 4.04 M/mcL (3.59-5.38); Red Cell Distribution Width 13.5 % (11.5-14.5); WBC 6.9 K/mcL (4.5-11.0)
[2020-12-14] MEDS: DOCUSATE SODIUM 100 MG CAPSULE PO SCH ×2 (09:46→21:12)
[2020-12-14] MEDS: MUPIROCIN OINT 2% 22GM NARES SCH ×2 (09:47→22:48)
[2020-12-14] MEDS: BUPRENORPHINE/NALOXONE 4MG/1MG ORAL FILM SL SCH (09:47)
--- NOTE | 2020-12-14 10:13 | Internal Med Progress Note ---
SUBJECTIVE Subjective Patient information: Note initiated : 12/14/20 at 10:11 am Service Date, if different from initiated Date: [] Patient: Anitha Horton 20 y/o F admitted on 12/10/20 for Abscess. Chief Complaint: [] Principal diagnosis: Abscess right popliteal space Interval history: 20 year old female with a history of heroin use admitted for large right popliteal abscess. The patient underwent I&D on 12/10, subsequently developed hypotension that responded to IV fluid. The patient also developed opioid withdrawal for which suboxone was started. 12/12: opioid cravings satisfactorily controlled with suboxone, surgical cultures grew MRSA and Haemophilus parainfluenzae. 12/13: still having some pain but overall pain has been fairly well controlled with tylenol and NSAIDs, currently not on opioids, surgical plan is for IV antibiotics at least until next week, added nicotine replacement prn hydroxyzine, zofran, clonidine for breakthrough opioid withdrawal symptoms. 12/14: opioid cravings controlled on current dose of suboxone, discussed history of possible autoimmune disease-the patient was supposed to see a edi analyst but has not yet, added hepatitis B, C, HIV and syphillus workup as the patient has a history of IVDU. Physical exam Head: Atraumatic, normal inspection. Eyes: normal appearance, no scleral icterus. Neck: full ROM Respiratory: no respiratory distress. Cardiovascular: normal rate and rhythm, S1, S2. GI/Abdominal: soft, nontender, no guarding. Extremities: right leg I&D site covered with clean bandage, improving cellulitis and edema present in right lower extremity. Neurological: CN II-XII intact, intact motor, intact sensation. Psychiatric: normal mood. Skin: warm, normal color Constitutional Vitals: Vital Signs Temp Pulse Resp BP Pulse Ox 97.4 F 83 15 103/74 97 12/14/20 09:37 12/14/20 09:37 12/14/20 09:37 12/14/20 09:37 12/14/20 09:37 Period Temp Pulse Resp BP Sys/[place] Pulse Ox Last 24 Hr 97.3 F-98.1 F 69-93 14-18 100-111/65-75 97-99 Intake and Output 12/13/20 12/14/20 12/14/20 21:59 05:59 13:59 Intake Total 1100 2062 1450 Output Total 8223 657 7112 Balance -150 1362 450 Weight 58.831 kg Intake & Output: Intake & Output 12/13/20 12/14/20 12/14/20 21:59 05:59 13:59 Intake Total 1100 2062 1450 Output Total 2717 878 4197 Balance -150 1362 450 Weight 58.831 kg Intake: IV 250 1482 250 Lactated Ringers 1,000 ml @ 100 1232 mls/hr IV .Q10H [facility] Rx#: [id number] Vancomycin 750 mg In Sodium 250 250 250 Chloride 0.9% 250 ml @ 250 mls/ hr IV Q8H [facility] Rx#:[id number] Oral 561 994 3111 Output: Void Amount 3396 267 3121 Other: Meal Lunch Breakfast Percent of Meal Consumed 100% 100% Feeding Ability Independent Urine Appearance Clear Clear Clear Urine Color Pale Pale Bright Yellow Urine Odor Normal Normal Stool Size Large Stool Color Brown Stool Consistency Formed # Voids 1 1 1 # Bowel Movements 1 OBJ DATA Labs CBC & Chem 7: 12/14/20 06:14 Labs: Abnormal Lab Results 12/14/20 12/13/20 12/12/20 06:14 15:10 14:27 Hgb 10.6 L 10.4 L Hct 32.5 L MCHC 30.6 L 30.7 L Vancomycin Trough 12/11/20 12:45 Hgb Hct MCHC Vancomycin Trough < 4.0 L Meds: Medications Acetaminophen (Acetaminophen 500 Mg Tablet) 1,000 mg PO Q8HP PRN; Protocol PRN Reason: Per Pain Protocol Last Admin: 12/13/20 03:51 Dose: 1,000 mg Documented by: Buprenorphine HCl (Buprenorphine/Naloxone 4mg/1mg Oral Film) 4 each SL DAILY [facility] Last Admin: 12/14/20 09:47 Dose: 4 each Documented by: Cefepime HCl (Cefepime 2 Gm Vial) 2 gm IV Q8H [facility]; Protocol Last Admin: 12/14/20 06:06 Dose: 2 gm Documented by: Clonidine HCl (Clonidine Hcl 0.1 Mg Tablet) 0.1 mg PO Q8H PRN PRN Reason: opioid withdrawal Docusate Sodium (Docusate Sodium 100 Mg Capsule) 100 mg PO BID [facility] Last Admin: 12/14/20 09:46 Dose: 100 mg Documented by: Hydroxyzine HCl (Hydroxyzine 25 Mg Tablet) 25 mg PO TIDP PRN PRN Reason: Anxiety Last Admin: 12/13/20 22:25 Dose: 25 mg Documented by: Lactated Ringer's (Lactated Ringers) 1,000 mls @ 100 mls/hr IV .Q10H [facility] Last Admin: 12/14/20 09:47 Dose: Not Given Documented by: Vancomycin HCl 750 mg/ Sodium (Chloride) 250 mls @ 250 mls/hr IV Q8H [facility] Last Infusion: 12/14/20 07:26 Dose: Infused Documented by: Ibuprofen (Ibuprofen 200 Mg Tablet) 400 mg PO Q6HP PRN; Protocol PRN Reason: Per Pain Protocol Last Admin: 12/13/20 22:25 Dose: 400 mg Documented by: Methocarbamol (Methocarbamol 750 Mg Tablet) 750 mg PO Q6HP PRN PRN Reason: Muscle Spasm Last Admin: 12/13/20 20:15 Dose: 750 mg Documented by: Mupirocin (Mupirocin Oint 2% 22gm) 1 dose NARES BID [facility] Last Admin: 12/14/20 09:47 Dose: 1 dose Documented by: Nicotine (Nicotine 21 Mg Patch) 21 mg TOPICAL DAILY@1000 [facility] Last Admin: 12/13/20 14:29 Dose: 21 mg Documented by: Nicotine Polacrilex (Nicotine Polacrilex 2 Mg Gum) 2 mg CHEW/PARK Q1HP PRN PRN Reason: Severe nicotine cravings Ondansetron HCl (Ondansetron 4 Mg/2 Ml Vial) 4 mg IV Q6HP PRN PRN Reason: Nausea And Vomiting Ondansetron HCl (Ondansetron 4 Mg/2 Ml Vial) 4 mg IV Q4HP PRN PRN Reason: Nausea And Vomiting Senna (Sennosides 1 Tablet) 2 tab PO HS [facility] Last Admin: 12/13/20 19:53 Dose: Not Given Documented by: Sodium Chloride (0.9 % Sodium Chloride 10 Ml Syringe) 10 ml IV Q8 [facility] Last Admin: 12/14/20 06:05 Dose: 10 ml Documented by: Tizanidine HCl (Tizanidine 4 Mg Tablet) 4 mg PO TID PRN PRN Reason: spasms Vancomycin HCl (Vancomycin Per Pharmacy) 1 order IV UD [facility]; Protocol A/P Narrative A/P Narrative: Assessment: 20 year old female with a history of IV substance use admitted for large right popliteal abscess and cellulitis s/p I&D 12/10/20. #Right popliteal abscess s/p I&D -culture grew MRSA and H parainfluenzae -blood culture NGTD #Resolving cellulitis #Opioid use disorder #Methamphetamine used disorder #Tobacco use disorder #Hx of positive ERIC, possible underlying autoimmune disease Plan -Antibiotics and wound care per surgery. -Continue Suboxone SL 16 mg/ 4 mg daily -Hepatitis B, C workup. -HIV screen. -Syphilis screen. -Nonopioid analgesics prn unless severe pain. -Nicotine replacement. -Addiction Medicine referral for immediately after discharge for enrollment in comprehensive substance use disorder treatment and Suboxone prescribing. -Rheumatology referral at discharge for autoimmune disease workup. Time Spent With Patient Time: Total time spent is greater than 50% in coordination of care (as documented) at patient's floor/unit and/or counseling patient:
[2020-12-14] MEDS: NICOTINE 21 MG PATCH TOPICAL SCH (10:22)
--- NOTE | 2020-12-14 11:53 | General Surgery Progress Note ---
SUBJECTIVE Subjective Patient information: Note initiated : 12/14/20 at 11:50 am Service Date, if different from initiated Date: [] Patient: Anitha Horton 20 y/o F admitted on 12/10/20 for Abscess. Chief Complaint: [] Principal diagnosis: Abscess right popliteal space Interval history: Patient continues to improve. The drainage from her posterior leg is significantly improved. She has less pain. She is afebrile. White blood count 6.9, hemoglobin 11.2. Constitutional Vitals: Vital Signs Temp Pulse Resp BP Pulse Ox 98.1 F 87 16 100/64 97 12/14/20 11:15 12/14/20 11:15 12/14/20 11:15 12/14/20 11:15 12/14/20 11:15 Period Temp Pulse Resp BP Sys/[place] Pulse Ox Last 24 Hr 97.3 F-98.1 F 69-93 14-18 100-111/64-75 97-99 Intake and Output 12/13/20 12/14/20 12/14/20 21:59 05:59 13:59 Intake Total 1100 2062 1450 Output Total 7500 890 6990 Balance -150 1362 450 Weight 129 lb 11.2 oz Intake & Output: Intake & Output 12/13/20 12/14/20 12/14/20 21:59 05:59 13:59 Intake Total 1100 2062 1450 Output Total 9656 097 8894 Balance -150 1362 450 Weight 129 lb 11.2 oz Intake: IV 250 1482 250 Lactated Ringers 1,000 ml @ 100 1232 mls/hr IV .Q10H [facility] Rx#: [id number] Vancomycin 750 mg In Sodium 250 250 250 Chloride 0.9% 250 ml @ 250 mls/ hr IV Q8H [facility] Rx#:[id number] Oral 721 [id number] 1724 Output: Void Amount 2644 736 6653 Other: Meal Lunch Breakfast Percent of Meal Consumed 100% 100% Feeding Ability Independent Urine Appearance Clear Clear Clear Urine Color Pale Pale Bright Yellow Urine Odor Normal Normal Stool Size Large Stool Color Brown Stool Consistency Formed # Voids 1 1 1 # Bowel Movements 1 ENT ENT exam: Present mucous membranes moist and normal exam Neck Neck exam: Present full ROM Additional comments: Internal jugular vein catheter right neck Respiratory Respiratory exam: Present normal respiratory exam and CTAB; Absent rales, rhonchi and wheezes Cardiovascular Cardiovascular exam: Present normal rate and rhythm, RRR, +S1 and +S2; Absent JVD GI/Abdominal GI/Abdominal exam: Present normal bowel sounds and soft; Absent distended, guarding and tenderness Extremities Exam Additional comments: General swelling and cellulitis of right lower extremity is decreased. The thigh area and the lower leg tissue is much softer and pliable. There is only a small amount of drainage from the operative site. Psychiatric Psychiatric exam: Present anxious and flat affect Skin Skin exam: Present erythema (Mild cellulitis of the upper and lower leg; much improved from yesterday); Absent cyanosis A/P Assessment and plan (1) Abscess of right lower leg: Status: Acute (2) Cellulitis: Status: Acute Qualifiers: Laterality: right Site of cellulitis: extremity Site of cellulitis of extremity: lower extremity Qualified Code(s): L03.115 - Cellulitis of right lower limb (3) Polysubstance (including opioids) dependence with physiol dependence: Status: Acute Narrative A/P Narrative: Continue present therapy Time Spent With Patient Time: Total time spent is greater than 50% in coordination of care (as documented) at patient's floor/unit and/or counseling patient:
[2020-12-14 12:56] LABS: HIV1/2 AG/AB 4TH Generation Non-Reactive (Non-Reactive)
[2020-12-14 13:01] LABS: Hepatitis B Surface Antibody POSITIVE (Negative); Hepatitis B Surface Antigen Negative (Negative)
--- NOTE | 2020-12-14 19:52 | Internal Med Progress Note ---
SUBJECTIVE Subjective Patient information: Note initiated : 12/14/20 at 7:49 pm Service Date, if different from initiated Date: [] Patient: Anitha Horton 20 y/o F admitted on 12/10/20 for Abscess. Chief Complaint: [] Principal diagnosis: Abscess right popliteal space Interval history: 20 year old female with a history of heroin use admitted for large right popliteal abscess. The patient underwent I&D on 12/10, subsequently developed hypotension that responded to IV fluid. The patient also developed opioid withdrawal for which Suboxone was started. 12/12: opioid cravings satisfactorily controlled with Suboxone, surgical cultures grew MRSA and Haemophilus parainfluenzae. 12/13: still having some pain but overall pain has been fairly well controlled with tylenol and NSAIDs, currently not on opioids, surgical plan is for IV antibiotics at least until next week, added nicotine replacement prn hydroxyzine, zofran, clonidine for breakthrough opioid withdrawal symptoms. 12/14: opioid cravings controlled on current dose of Suboxone, discussed history of possible autoimmune disease-the patient was supposed to see a electroplating laborer but has not yet, added hepatitis B, C, HIV and syphillus workup as the patient has a history of IVDU. 12/15: afebrile and stable, continues on IV Vancomycin and Cefepime per surgery. Physical exam Head: Atraumatic, normal inspection. Eyes: normal appearance, no scleral icterus. Neck: full ROM Respiratory: no respiratory distress. Cardiovascular: normal rate and rhythm, S1, S2. GI/Abdominal: soft, nontender, no guarding. Extremities: right leg I&D site covered with clean bandage, improving cellulitis and edema present in right lower extremity. Neurological: CN II-XII intact, intact motor, intact sensation. Psychiatric: normal mood. Skin: warm, normal color Constitutional Vitals: Vital Signs Temp Pulse Resp BP Pulse Ox 97.6 F 98 H 16 107/77 96 12/14/20 15:38 12/14/20 15:38 12/14/20 15:38 12/14/20 15:38 12/14/20 15:38 Period Temp Pulse Resp BP Sys/[place] Pulse Ox Last 24 Hr 97.3 F-98.1 F 72-98 - 100-111/64-77 96-99 Intake and Output 12/14/20 12/14/20 12/14/20 05:59 13:59 21:59 Intake Total 2061 2818 250 Output Total 700 1000 Balance 1362 1818 250 Intake & Output: Intake & Output 12/14/20 12/14/20 12/14/20 05:59 13:59 21:59 Intake Total 2061 2818 250 Output Total 700 1000 Balance 1362 1818 250 Intake: IV 1482 1018 Lactated Ringers 1,000 ml @ 100 1232 768 mls/hr IV .Q10H [facility] Rx#: [id number] Vancomycin 750 mg In Sodium 250 250 Chloride 0.9% 250 ml @ 250 mls/ hr IV Q8H [facility] Rx#:[id number] Oral 580 1800 250 Output: Void Amount 700 1000 Other: Meal Lunch Percent of Meal Consumed 100% Feeding Ability Independent Urine Appearance Clear Clear Urine Color Pale Bright Yellow Urine Odor Normal # Voids 1 1 OBJ DATA Labs CBC & Chem 7: 12/15/20 05:51 Labs: Abnormal Lab Results 12/14/20 12/14/20 12/14/20 11:23 11:22 06:14 Hgb Hct MCHC 30.6 L Hep Bs Antibody Positive A Hepatitis C Antibody See comment A 12/13/20 12/12/20 15:10 14:27 Hgb 10.6 L 10.4 L Hct 32.5 L MCHC 30.7 L Hep Bs Antibody Hepatitis C Antibody Meds: Medications Acetaminophen (Acetaminophen 500 Mg Tablet) 1,000 mg PO Q8HP PRN; Protocol PRN Reason: Per Pain Protocol Last Admin: 12/13/20 03:51 Dose: 1,000 mg Documented by: Buprenorphine HCl (Buprenorphine/Naloxone 4mg/1mg Oral Film) 4 each SL DAILY [facility] Last Admin: 12/14/20 09:47 Dose: 4 each Documented by: Cefepime HCl (Cefepime 2 Gm Vial) 2 gm IV Q8H [facility]; Protocol Last Admin: 12/14/20 13:56 Dose: 2 gm Documented by: Clonidine HCl (Clonidine Hcl 0.1 Mg Tablet) 0.1 mg PO Q8H PRN PRN Reason: opioid withdrawal Docusate Sodium (Docusate Sodium 100 Mg Capsule) 100 mg PO BID [facility] Last Admin: 12/14/20 09:46 Dose: 100 mg Documented by: Hydroxyzine HCl (Hydroxyzine 25 Mg Tablet) 25 mg PO TIDP PRN PRN Reason: Anxiety Last Admin: 12/13/20 22:25 Dose: 25 mg Documented by: Lactated Ringer's (Lactated Ringers) 1,000 mls @ 100 mls/hr IV .Q10H [facility] Last Admin: 12/14/20 15:36 Dose: 100 mls/hr Documented by: Ibuprofen (Ibuprofen 200 Mg Tablet) 400 mg PO Q6HP PRN; Protocol PRN Reason: Per Pain Protocol Last Admin: 12/13/20 22:25 Dose: 400 mg Documented by: Methocarbamol (Methocarbamol 750 Mg Tablet) 750 mg PO Q6HP PRN PRN Reason: Muscle Spasm Last Admin: 12/13/20 20:15 Dose: 750 mg Documented by: Mupirocin (Mupirocin Oint 2% 22gm) 1 dose NARES BID [facility] Last Admin: 12/14/20 09:47 Dose: 1 dose Documented by: Nicotine (Nicotine 21 Mg Patch) 21 mg TOPICAL DAILY@1000 [facility] Last Admin: 12/14/20 10:22 Dose: 21 mg Documented by: Nicotine Polacrilex (Nicotine Polacrilex 2 Mg Gum) 2 mg CHEW/PARK Q1HP PRN PRN Reason: Severe nicotine cravings Ondansetron HCl (Ondansetron 4 Mg/2 Ml Vial) 4 mg IV Q6HP PRN PRN Reason: Nausea And Vomiting Ondansetron HCl (Ondansetron 4 Mg/2 Ml Vial) 4 mg IV Q4HP PRN PRN Reason: Nausea And Vomiting Senna (Sennosides 1 Tablet) 2 tab PO HS [facility] Last Admin: 12/13/20 19:53 Dose: Not Given Documented by: Sodium Chloride (0.9 % Sodium Chloride 10 Ml Syringe) 10 ml IV Q8 [facility] Last Admin: 12/14/20 13:48 Dose: Not Given Documented by: Tizanidine HCl (Tizanidine 4 Mg Tablet) 4 mg PO TID PRN PRN Reason: spasms Vancomycin HCl (Vancomycin Per Pharmacy) 1 order IV UD [facility]; Protocol A/P Narrative A/P Narrative: Assessment: 20 year old female with a history of IV substance use admitted for large right popliteal abscess and cellulitis s/p I&D 12/10/20. The patient has been on broad spectrum antibiotics, cultures grew MRSA and Haemophilus parainfluenzae. The patient developed opioid withdrawal for which she agreed to start Suboxone and that was titrated to effect. The plan for substance use is for the patient to follow up with addiction medicine after discharge for suboxone maintenance therapy and comprehensive substance use disorder management. Additionally, the patient has a history of positive ERIC and previously there was concern for possible SLE. The patient was supposed to see Rheumatology but has not yet. #Right popliteal abscess s/p I&D -culture grew MRSA and H parainfluenzae -blood culture NGTD #Resolving cellulitis #Possible hepatitis C infection #Opioid use disorder #Methamphetamine used disorder #Tobacco use disorder #Hx of positive ERIC, possible underlying autoimmune disease Plan -Antibiotics and wound care per surgery. -Continue Suboxone SL 16 mg/ 4 mg daily -Follow pending hepatitis C workup, if positive then refer to GI after discharge. -Nicotine replacement. -Addiction Medicine referral for immediately after discharge for enrollment in comprehensive substance use disorder treatment and Suboxone prescribing. -Rheumatology referral at discharge for autoimmune disease workup. -Hospital medicine will sign off now, ok with Dr. Colunga. Time Spent With Patient Time: Total time spent is greater than 50% in coordination of care (as documente d) at patient's floor/unit and/or counseling patient:
[2020-12-14] MEDS ORDERED: VANCOMYCIN 1,000 MG in 0.9 % SODIUM CHLORIDE 250 ML IV SCH (21:00)
[2020-12-14] MEDS: SENNOSIDES 1 TABLET PO SCH (21:12)
[2020-12-15] MEDS: LACTATED RINGERS 1,000 ML IV SCH ×3 (01:43→14:26)
[2020-12-15] MEDS: CEFEPIME 2 GM VIAL IV SCH ×3 (05:48→21:20)
[2020-12-15] MEDS: 0.9 % SODIUM CHLORIDE 10 ML SYRINGE IV SCH ×3 (05:49→21:21)
[2020-12-15 07:29] LABS: Basophils # (Auto) 0.09 K/mcL (0.00-0.30); Basophils % (Auto) 1.2 % (0.0-2.0); Eosinophils # (Auto) 0.31 K/mcL (0.00-0.70); Eosinophils % (Auto) 4.1 % (0.0-7.0); Hematocrit 37.6 % (34.1-44.9); Hemoglobin 11.5 g/dL (11.2-15.7); Lymphocytes # (Auto) 3.37 K/mcL (1.50-4.80); Lymphocytes % (Auto) 44.1 % (15.5-49.0); Mean Cell Volume 91.3 fL (80.0-100.0); Mean Corpuscular HGB Conc 30.6 g/dL (31.0-36.0); Mean Platelet Volume 9.7 fL (7.4-10.4); Monocytes # (Auto) 0.64 K/mcL (0.10-0.90); Monocytes % (Auto) 8.4 % (1.0-12.0); Neutrophils % (Auto) 42.2 % (38.0-78.0); Platelet Count 356 K/mcL (140-440); RBC 4.12 M/mcL (3.59-5.38); Red Cell Distribution Width 13.8 % (11.5-14.5); WBC 7.7 K/mcL (4.5-11.0)
[2020-12-15] MEDS: DOCUSATE SODIUM 100 MG CAPSULE PO SCH ×2 (08:51→21:18)
[2020-12-15] MEDS: MUPIROCIN OINT 2% 22GM NARES SCH ×2 (08:51→21:17)
[2020-12-15] MEDS: NICOTINE 21 MG PATCH TOPICAL SCH (08:51)
[2020-12-15] MEDS: BUPRENORPHINE/NALOXONE 4MG/1MG ORAL FILM SL SCH (08:51)
[2020-12-15] MEDS ORDERED: VANCOMYCIN 1,000 MG in 0.9 % SODIUM CHLORIDE 250 ML IV ONE (09:00)
--- NOTE | 2020-12-15 13:30 | General Surgery Progress Note ---
SUBJECTIVE Subjective Patient information: Note initiated : 12/15/20 at 1:28 pm Service Date, if different from initiated Date: [] Patient: Anitha Horton 20 y/o F admitted on 12/10/20 for Abscess. Chief Complaint: [] Principal diagnosis: Abscess right popliteal space Interval history: Patient continues to improve. She has less discomfort in her right leg. The cellulitis of the leg is significantly improved. The edema has essentially resolved. White blood count 7.7, hemoglobin 11.5, hematocrit 37.6. Final cultures grew out MRSA and Haemophilus parainfluenza. Constitutional Vitals: Vital Signs Temp Pulse Resp BP Pulse Ox 99 F 80 20 100/65 95 12/15/20 12:00 12/15/20 04:00 12/15/20 12:00 12/15/20 12:00 12/15/20 12:00 Period Temp Pulse Resp BP Sys/[place] Pulse Ox Last 24 Hr 97.6 F-99 F 80-98 16-26 96-114/60-77 95-98 Intake and Output 12/14/20 12/15/20 12/15/20 21:59 05:59 13:59 Intake Total 250 4000 500 Output Total 4100 Balance 250 -100 500 Weight 129 lb Intake & Output: Intake & Output 12/14/20 12/15/20 12/15/20 21:59 05:59 13:59 Intake Total 250 4000 500 Output Total 4100 Balance 250 -100 500 Weight 129 lb Intake: IV 1000 250 Lactated Ringers 1,000 ml @ 100 1000 mls/hr IV .Q10H [facility] Rx#: [id number] Vancomycin 1,000 mg In Sodium 250 Chloride 0.9% 250 ml @ 250 mls/ hr IV ONCE ONE Rx#:[id number] Oral 250 3000 250 Output: Void Amount 4100 Other: Meal Nourishment/Supplement Breakfast Percent of Meal Consumed 100% 100% Feeding Ability Independent Independent Urine Appearance Clear Urine Color Pale Urine Odor Normal # Voids 3 Neck Neck exam: Present full ROM Additional comments: Internal jugular vein catheter right neck Respiratory Respiratory exam: Present normal respiratory exam and CTAB; Absent rales, rhonchi and wheezes Cardiovascular Cardiovascular exam: Present normal rate and rhythm, RRR, +S1 and +S2; Absent JVD GI/Abdominal GI/Abdominal exam: Present normal bowel sounds and soft; Absent distended, guarding and tenderness Extremities Exam Additional comments: General swelling and cellulitis of right lower extremity is decreased. The thigh area and the lower leg tissue is much softer and pliable. There is only a small amount of drainage from the operative site. Neurological Exam Neurological exam: Present alert and oriented X3 Psychiatric Psychiatric exam: Present anxious and flat affect Skin Skin exam: Present erythema (Mild cellulitis of the upper and lower leg; much improved from yesterday); Absent cyanosis A/P Assessment and plan (1) Abscess of right lower leg: Status: Acute (2) Cellulitis: Status: Acute Qualifiers: Laterality: right Site of cellulitis: extremity Site of cellulitis of extremity: lower extremity Qualified Code(s): L03.115 - Cellulitis of right lower limb (3) Polysubstance (including opioids) dependence with physiol dependence: Status: Acute Narrative A/P Narrative: Continue present antibiotic therapy Probable discharge on Wednesday with follow-up in outpatient clinic for dressing change. Discharge medications for Bactrim and doxycycline Time Spent With Patient Time: Total time spent is greater than 50% in coordination of care (as documented) at patient's floor/unit and/or counseling patient:
[2020-12-15] MEDS: VANCOMYCIN 750 MG in 0.9 % SODIUM CHLORIDE 250 ML IV SCH ×2 (14:34→21:20)
[2020-12-15] MEDS: ACETAMINOPHEN 500 MG TABLET PO PRN (19:20)
[2020-12-15] MEDS: SENNOSIDES 1 TABLET PO SCH (21:17)
[2020-12-15] MEDS: METHOCARBAMOL 750 MG TABLET PO PRN (21:36)
[2020-12-16] MEDS: LACTATED RINGERS 1,000 ML IV SCH ×2 (03:00→09:29)
[2020-12-16] MEDS: VANCOMYCIN 750 MG in 0.9 % SODIUM CHLORIDE 250 ML IV SCH ×2 (05:30→14:56)
[2020-12-16] MEDS: 0.9 % SODIUM CHLORIDE 10 ML SYRINGE IV SCH ×2 (05:30→14:56)
[2020-12-16] MEDS: CEFEPIME 2 GM VIAL IV SCH ×2 (05:30→14:56)
[2020-12-16] MEDS: DOCUSATE SODIUM 100 MG CAPSULE PO SCH (07:59)
[2020-12-16] MEDS: MUPIROCIN OINT 2% 22GM NARES SCH (07:59)
[2020-12-16] MEDS: BUPRENORPHINE/NALOXONE 4MG/1MG ORAL FILM SL SCH (07:59)
[2020-12-16] MEDS: NICOTINE 21 MG PATCH TOPICAL SCH (07:59)
--- NOTE | 2020-12-16 13:52 | Discharge Summary ---
Discharge Provider Provider Patient information: Note initiated : 12/16/20 at 1:43 pm Service Date, if different from initiated Date: [] Patient: Anitha Horton 20 y/o F admitted on 12/10/20 for Abscess. Chief Complaint: [] Date of admission: 12/10/20 15:15 Discharge date: 12/16/20 Primary care physician: PCP No Consults: 12/10/20 Consult to Physician [CONS] Stat Comment: Consulting Provider: Foster Johnson Reason For Exam: Physician to Consult Consult to Physician [CONS] Stat Comment: Consulting Provider: Adarsh Brooks Reason For Exam: Physician to Consult Consult to Physician [CONS] Stat Comment: Consulting Provider: Aracelis Colunga Reason For Exam: Physician to Consult COURSE Hospital Course Hospital course: 20-year-old female admitted on 10 December 2020 with large abscess of the right popliteal space. This was secondary to injection of heroin and methamphetamine. Incision and drainage was carried out on 10 December with debridement of the superiormost aspect of the gastrocnemius muscle and fascia. A [place] drain was left in the abscess tract in the tract was copiously irrigated with some curetting of the lining. Cultures grew out methicillin-resistant Staph aureus and Haemophilus parainfluenza. She has been treated with vancomycin and has done well. The cellulitis of her right lower extremity has resolved and the induration and swelling has resolved. The drain is left intact. Patient is stable for discharge home and is advised to have follow-up in the outpatient center every other day. I will see her in the office in 3 weeks if she is still living in the area. Discharge diagnosis: Popliteal abscess right lower extremity Secondary discharge diagnosis: Cellulitis right lower extremity Polysubstance drug abuse and dependence Reason for admission: Abscess of right popliteal space Procedures: Incision, drainage and debridement of abscess right popliteal space December 17 Pertinent studies/significant findings: CT of bilateral lower extremities Complications: No complications Time Spent with Patient Time attestation: Total time spent providing and/or coordinating discharge services: Physical Examination Vital Signs Vital signs: Temp Pulse Resp BP Pulse Ox 97.3 F 99 H 18 111/77 96 12/16/20 13:09 12/16/20 13:09 12/16/20 13:09 12/16/20 13:09 12/16/20 13:09 General physical appearance General physical exam: well developed, well nourished and no distress Eyes Eye exam: PERRL and normal ocular movement ENT ENT exam: normal pinna, normal nares, normal mucosa and no hearing loss Head Head exam IM: Present atraumatic, normal inspection and normocephalic Neck Neck exam: no masses, no bruits, trachea midline, no lymphadenopathy and no venous distension Cardiovascular Cardiovascular exam IM: Present normal rate and rhythm, JVD, +S1 and +S2; Absent RRR Respiratory Respiratory exam: normal expansion, normal respiratory effort and clear to auscultation Abdomen Abdomen: Present soft, non tender and bowel sounds; Absent tender Integumentary Integumentary: Present no rash and no growths Neurologic Neurologic: Present normal coordination and normal sensation Musculoskeletal Musculoskeletal: Present normal gait, normal posture and other (Healing abscess cavity right popliteal space) Psychiatric Psychiatric: Present oriented to time, oriented to person, oriented to place, speech is normal and memory intact Discharge Plan Patient/Caregiver Discharge Instructions Activity: increase activity as tolerated Diet: Regular Diet Prescriptions: New doxycycline hyclate 100 mg capsule 100 mg PO BID Qty: 40 RF: 0 sulfamethoxazole-trimethoprim [Bactrim DS] 800-160 mg tablet 1 tab PO BID Qty: 40 RF: 0 No Action No Known Home Meds RF: 0 Other Ambulatory Orders: Discharge Referrals (Routine) Location: None Selected Ordered By: Adarsh Brooks Follow Up Plan Follow up with: Aracelis Colunga MD [Physician] - (Make an appointment with me in 3 weeks) Patient Disposition: Home, Self-Care Plan of Treatment: Dressing change in outpatient clinic every other day Prognosis: Fair Rehab Potential: Good I certify that the patient requires SNF services: No Overall status at discharge: patient is progressing back to baseline Discharge Orders: Discharge Order (Routine); Ordered 12/16/20 Ordered By: Aracelis Colunga Pending Pending Pending: Resuscitation Status Resuscitate (Full Code) Diet Regular Diet Start WedDec 10 1529 Acetaminophen (Acetaminophen 500 Mg Tablet) 1,000 mg PO Q8HP PRN; Protocol PRN Reason: Per Pain Protocol Last Admin: 12/15/20 19:20 Dose: 1,000 mg Documented by: Admin: 12/13/20 03:51 Dose: 1,000 mg Documented by: Admin: 12/12/20 11:43 Dose: 1,000 mg Documented by: LUCHO Buprenorphine HCl (Buprenorphine/Naloxone 4mg/1mg Oral Film) 4 each SL DAILY [facility] Last Admin: 12/16/20 07:59 Dose: 4 each Documented by: Admin: 12/15/20 08:51 Dose: 4 each Documented by: Admin: 12/14/20 09:47 Dose: 4 each Documented by: GERMAINE Cefepime HCl (Cefepime 2 Gm Vial) 2 gm IV Q8H [facility]; Protocol Last Admin: 12/16/20 05:30 Dose: Not Given Documented by: Admin: 12/15/20 21:20 Dose: 2 gm Documented by: Admin: 12/15/20 14:26 Dose: 2 gm Documented by: Admin: 12/15/20 05:48 Dose: 2 gm Documented by: Admin: 12/14/20 22:25 Dose: 2 gm Documented by: Admin: 12/14/20 13:56 Dose: 2 gm Documented by: Admin: 12/14/20 06:06 Dose: 2 gm Documented by: Admin: 12/13/20 22:07 Dose: 2 gm Documented by: Admin: 12/13/20 14:20 Dose: 2 gm Documented by: Admin: 12/13/20 05:47 Dose: 2 gm Documented by: Admin: 12/12/20 22:55 Dose: 2 gm Documented by: Admin: 12/12/20 13:30 Dose: 2 gm Documented by: Admin: 12/12/20 06:27 Dose: 2 gm Documented by: Admin: 12/11/20 21:19 Dose: 2 gm Documented by: Admin: 12/11/20 13:37 Dose: 2 gm Documented by: Admin: 12/11/20 05:32 Dose: 2 gm Documented by: Admin: 12/10/20 22:31 Dose: 2 gm Documented by: Admin: 12/10/20 17:03 Dose: 2 gm Documented by: GERMAINE Docusate Sodium (Docusate Sodium 100 Mg Capsule) 100 mg PO BID [facility] Last Admin: 12/16/20 07:59 Dose: 100 mg Documented by: Admin: 12/15/20 21:18 Dose: 100 mg Documented by: Admin: 12/15/20 08:51 Dose: Not Given Documented by: Admin: 12/14/20 21:12 Dose: Not Given Documented by: Admin: 12/14/20 09:46 Dose: 100 mg Documented by: Admin: 12/13/20 19:53 Dose: Not Given Documented by: Admin: 12/13/20 08:17 Dose: 100 mg Documented by: Admin: 12/12/20 22:14 Dose: 100 mg Documented by: Admin: 12/12/20 08:33 Dose: 100 mg Documented by: Admin: 12/11/20 21:19 Dose: Not Given Documented by: Admin: 12/11/20 08:26 Dose: Not Given Documented by: Admin: 12/10/20 20:14 Dose: Not Given Documented by: LUIZ Lactated Ringer's (Lactated Ringers) 1,000 mls @ 100 mls/hr IV .Q10H [facility] Admin: 12/16/20 09:29 Dose: Not Given Documented by: Admin: 12/16/20 03:00 Dose: Not Given Documented by: Infusion: 12/16/20 00:29 Dose: 100 mls/hr Documented by: Admin: 12/15/20 14:26 Dose: 100 mls/hr Documented by: Infusion: 12/15/20 11:43 Dose: 100 mls/hr Documented by: Admin: 12/15/20 05:49 Dose: Not Given Documented by: Admin: 12/15/20 01:43 Dose: 100 mls/hr Documented by: Infusion: 12/15/20 01:36 Dose: 100 mls/hr Documented by: Admin: 12/14/20 21:12 Dose: Not Given Documented by: Admin: 12/14/20 15:36 Dose: 100 mls/hr Documented by: Infusion: 12/14/20 12:41 Dose: 100 mls/hr Documented by: Admin: 12/14/20 09:47 Dose: Not Given Documented by: Infusion: 12/14/20 05:00 Dose: 100 mls/hr Documented by: Infusion: 12/14/20 04:45 Dose: 0 mls/hr Documented by: Admin: 12/14/20 02:26 Dose: 100 mls/hr Documented by: Infusion: 12/13/20 23:10 Dose: 100 mls/hr Documented by: Admin: 12/13/20 13:10 Dose: 100 mls/hr Documented by: Infusion: 12/13/20 13:10 Dose: 0 mls/hr Documented by: Admin: 12/13/20 01:58 Dose: 100 mls/hr Documented by: Infusion: 12/13/20 00:51 Dose: 100 mls/hr Documented by: Admin: 12/12/20 16:39 Dose: Not Given Documented by: Admin: 12/12/20 14:51 Dose: 100 mls/hr Documented by: Infusion: 12/12/20 14:51 Dose: 100 mls/hr Documented by: Admin: 12/12/20 06:25 Dose: 100 mls/hr Documented by: Infusion: 12/12/20 03:17 Dose: 100 mls/hr Documented by: Admin: 12/11/20 23:31 Dose: Not Given Documented by: Admin: 12/11/20 17:17 Dose: 100 mls/hr Documented by: Infusion: 12/11/20 13:29 Dose: 100 mls/hr Documented by: Admin: 12/11/20 12:50 Dose: Not Given Documented by: Admin: 12/11/20 03:29 Dose: 100 mls/hr Documented by: Infusion: 12/11/20 02:35 Dose: 100 mls/hr Documented by: Admin: 12/10/20 16:35 Dose: 100 mls/hr Documented by: GERMAINE Vancomycin HCl 750 mg/ Sodium (Chloride) 250 mls @ 250 mls/hr IV Q8H [facility] Last Admin: 12/16/20 05:30 Dose: Not Given Documented by: Infusion: 12/15/20 22:20 Dose: 250 mls/hr Documented by: Admin: 12/15/20 21:20 Dose: 250 mls/hr Documented by: Infusion: 12/15/20 16:25 Dose: 0 mls/hr Documented by: Admin: 12/15/20 14:34 Dose: 250 mls/hr Documented by: GERMAINE Ibuprofen (Ibuprofen 200 Mg Tablet) 400 mg PO Q6HP PRN; Protocol PRN Reason: Per Pain Protocol Last Admin: 12/13/20 22:25 Dose: 400 mg Documented by: Admin: 12/13/20 08:17 Dose: 400 mg Documented by: Admin: 12/13/20 03:52 Dose: 400 mg Documented by: Admin: 12/12/20 13:35 Dose: 400 mg Documented by: LUCHO Methocarbamol (Methocarbamol 750 Mg Tablet) 750 mg PO Q6HP PRN PRN Reason: Muscle Spasm Last Admin: 12/15/20 21:36 Dose: 750 mg Documented by: Admin: 12/13/20 20:15 Dose: 750 mg Documented by: Admin: 12/12/20 19:52 Dose: 750 mg Documented by: Admin: 12/12/20 13:48 Dose: 750 mg Documented by: LUCHO Mupirocin (Mupirocin Oint 2% 22gm) 1 dose NARES BID [facility] Last Admin: 12/16/20 07:59 Dose: 1 dose Documented by: Admin: 12/15/20 21:17 Dose: 1 dose Documented by: Admin: 12/15/20 08:51 Dose: 1 dose Documented by: Admin: 12/14/20 22:48 Dose: 1 dose Documented by: Admin: 12/14/20 09:47 Dose: 1 dose Documented by: Admin: 12/13/20 20:15 Dose: 1 dose Documented by: Admin: 12/13/20 08:18 Dose: 1 dose Documented by: Admin: 12/12/20 23:02 Dose: 1 dose Documented by: Admin: 12/12/20 08:33 Dose: 1 dose Documented by: Admin: 12/11/20 21:17 Dose: 1 dose Documented by: JEFF Nicotine (Nicotine 21 Mg Patch) 21 mg TOPICAL DAILY@1000 [facility] Last Admin: 12/16/20 07:59 Dose: 21 mg Documented by: Admin: 12/15/20 08:51 Dose: 21 mg Documented by: Admin: 12/14/20 10:22 Dose: 21 mg Documented by: Admin: 12/13/20 14:29 Dose: 21 mg Documented by: KYLIE Senna (Sennosides 1 Tablet) 2 tab PO HS [facility] Last Admin: 12/15/20 21:17 Dose: 2 tab Documented by: Admin: 12/14/20 21:12 Dose: Not Given Documented by: Admin: 12/13/20 19:53 Dose: Not Given Documented by: Admin: 12/12/20 22:14 Dose: 2 tab Documented by: Admin: 12/11/20 21:19 Dose: Not Given Documented by: Admin: 12/10/20 20:15 Dose: Not Given Documented by: LUIZ Sodium Chloride (0.9 % Sodium Chloride 10 Ml Syringe) 10 ml IV Q8 [facility] Admin: 12/16/20 05:30 Dose: Not Given Documented by: Admin: 12/15/20 21:21 Dose: 10 ml Documented by: Admin: 12/15/20 14:26 Dose: Not Given Documented by: Admin: 12/15/20 05:49 Dose: 10 ml Documented by: Admin: 12/14/20 22:25 Dose: Not Given Documented by: Admin: 12/14/20 13:48 Dose: Not Given Documented by: Admin: 12/14/20 06:05 Dose: 10 ml Documented by: Admin: 12/13/20 20:16 Dose: Not Given Documented by: Admin: 12/13/20 14:20 Dose: Not Given Documented by: Admin: 12/13/20 05:48 Dose: 10 ml Documented by: Admin: 12/12/20 23:03 Dose: 10 ml Documented by: Admin: 12/12/20 14:06 Dose: Not Given Documented by: Admin: 12/12/20 06:30 Dose: Not Given Documented by: Admin: 12/11/20 21:19 Dose: Not Given Documented by: Admin: 12/11/20 12:01 Dose: Not Given Documented by: Admin: 12/11/20 05:32 Dose: Not Given Documented by: Admin: 12/10/20 22:31 Dose: 10 ml Documented by: LUIZ Shift Summary 12/16/20 05:29 Shift Summary by Darya Newman Primary Diagnosis: Right leg Popliteal Abscess & I & D Registration Status: Inpatient Day of Hospitalization: 12/10 Date of Surgery (if applicable): 12/10 Incision and Drainage of Right Popliteal Abscess. Pertinent Medical Dx/Issues: Lupus, Raynauds, Opioid use disorder, Meth use di sorder, Tobacco use, Positive MRSA on wound culture and nares. Interventions (O2, wounds, diuresis, etc): Right knee wound to be changed tomorrow (wants to shower first then change it after)- wound care orders for every other day with 4x4, kerlix, and kan wrap- bernice drain in back of knee draining sanguinous- redness to right leg has decreased significantly, outlined from previous redness. PRN order for left foot exufiber and KAN otherwise leave in place. Suboxone SL dose increased to 16/4 mg yesterday. remains in contact precautions for MRSA+ Vital Signs with Trends: patient with soft BP in low 100's systolic MD aware. tachycardic at times however mostly remained stable HR in 80's today. Meds (abo, pain, BP, etc): No longer has EJ IV line. Pt refuses to have it put back. Unable to give last dose of vanco and cefepime Lines/Tubes: EJ IV line came out and after x2 attempts to reinsert an EJ IV line, pt refused any further attempts. Pt did not receive her 0600 vanco and cefepime on this shift. See RN note. Date of last BM: 12/14 Elimination: Voids to bathroom/bedside commode. Activity: Up ad grady in room. Expected date of discharge: Per MD patient will be here a couple more days. Discharge Plan (needs, disposition, etc): will d/c home with father when able. patient wants to continue on Suboxone in order to make sure that she does not go back to IV drug use. Nicotine patch to left arm, blood cultures negative, wound culture positive for MRSA and hemophyilus parinfluenzae. Initialized on 12/16/20 05:29 - END OF NOTE
[2020-12-22 23:41] LABS: Cannabinoid Confirmation Positive; Opiate Confirmation Positive
== END 2020-12-16 14:43 | disposition home or self-care (01) | DRG 603 ==
LOC: ED 00:15 → SUR 12:36 → MEDSUR 15:15
PROVIDERS: ADMIT Family Medicine Adult Medicine; ATTEND Family Medicine Adult Medicine